=== PATIENT | female | born 2000 | race Caucasian/White ===

== ENCOUNTER → 2024-05-28 | Outpatient (CLI) | payer BC | LOC: RAD 13:45 | DX: M79.672 Pain in left foot (principal) ==

== ENCOUNTER → 2024-06-02 | Outpatient (CLI) | payer BC | LOC: RAD 07:18 | DX: M79.672 Pain in left foot (principal); R10.9 Unspecified abdominal pain; Z87.828 Personal history of other (healed) physical injury and trauma ==